=== PATIENT | male | born 1980 | race Caucasian/White ===

== ENCOUNTER → 2019-12-05 11:58 | Outpatient (BNVA) | payer MEDICARE, MEDICAID, SELFPAY | PROVIDERS: Family Provider Nurse Practitioner Family; PCP Nurse Practitioner Family; Visit Provider Nurse Practitioner Family | DX: L08.9 Local infection of the skin and subcutaneous tissue, unspecified (principal); S46.001A Unspecified injury of muscle(s) and tendon(s) of the rotator cuff of right shoulder, initial encounter | CPT/HCPCS: 73030 ==

== ENCOUNTER 2019-12-11 08:28 | Observation (INO) | payer MEDICARE, MEDICAID, SELFPAY ==
[2019-12-11] VITALS (13 sets, daily range): BP systolic 124–144; BP diastolic 81–116; PULSE 89–112; RESP 15–20; TEMP 36.4–37.1; O2SAT 92–97; BMI 27.4
--- NOTE | 2019-12-11 08:31 | ED_ITS ---
Entered by Soy Arias, acting as scribe for Bravo Grayson DO HPI - GI Bleed General: Chief complaint: Chest Pain Stated complaint: CHEST PAIN/ NAUSEA/ DARK TARRY STOOLS Time Seen by Provider: 12/11/19 08:32 History of Present Illness: HPI Narrative: 39 yo male presents with nausea, vomiting and dark tarry stools. Pt states that he has chest pain, tingling in his face and extremities. Pt states that he started vomiting dark brown bile. Pt states that this all started at 130 this morning. Pt states that his heart rate increased to 120s. Pt states that his heart rate hasn't gone down. MD complaint: other (dark tarry stools) Associated symptoms: Reports headache(s), nausea and vomiting; Denies abdominal pain, chills, easy bruising, fever(s), malaise, rash or syncope Review of Systems Const: Denies: fever, chills, body aches, fatigue, malaise or night sweats Eyes: Denies: change in vision or blurry vision ENMT: Denies: throat pain, oral sores/lesions, dental pain, nasal discharge or nasal congestion Card: Reports: chest pain; Denies: palpitations, irregular heart rhythm, edema, syncope, shortness of breath on exertion, shortness of breath when lying down or leg pain with exertion Resp: Denies: shortness of breath, productive cough, non-productive cough or wheezing GI: Reports: nausea, vomiting, coffee grounds in vomit, diarrhea, blood in stool and black tarry stool; Denies: abdominal pain, vomiting blood, difficulty swallowing, heartburn/indigestion, constipation or cramping : Denies: flank pain, difficulty urinating, painful urination, urinary frequency, urinary urgency, urinary incontinence or blood in urine Musc: Denies: neck pain, back pain, extremity pain, extremity swelling, joint pain or joint swelling Skin/Breast: Denies: rash, itching or redness Neuro: Reports: headache and numbness in extremities; Denies: weakness in extremities, changes in sensation, lack of coordination, difficulty walking, frequent falls, dizziness, vertigo or confusion Psych: Reports: anxiety; Denies: depression, loss of interest, visual hallucinations, auditory hallucinations, suicidal ideation or homicidal ideation Endo: Denies: excessive urination, excessive thirst, tired all the time or cold intolerance Marco/Lymph: Denies: easy bruising, easy bleeding, petechiae, enlarged lymph nodes or tender lymph nodes PFSH ED PFSH: Surgical History S/P right rotator cuff repair Family History (Updated 12/11/19 @ 12:56 by Kacie Eaton DO) Father CAD (coronary artery disease) Mother CAD (coronary artery disease) Diabetes Social History (Updated 12/11/19 @ 12:57 by Kacie Eaton DO) Smoking and tobacco status: current every day smoker cigarettes and cigars Quit status (tobacco): not considering quitting Second hand smoke exposure: Yes Smoking risk assessment/counseling performed?: Yes Alcohol intake: current Alcohol intake frequency: few times a week Desire information about alcohol rehabilitation?: No Counseling given: No Desire information about substance/drug rehabilitation?: No Counseling given: No Physical Exam Const: COMMON NORMALS: average body habitus, oriented x3 and alert GENERAL APPEARANCE: cooperative, comfortable, well kempt and well developed NUTRITIONAL APPEARANCE: obese ORIENTATION/CONSCIOUSNESS: Yes awake, Yes oriented to person and Yes oriented to place HENMT: COMMON NORMALS: normocephalic, head/scalp atraumatic, EAC's normal, TM's normal bilaterally, external nose normal, moist oral mucous membranes and oropharynx normal HEAD & SCALP: normocephalic and atraumatic NOSE: external nose normal EXTERNAL AUDITORY CANAL: EAC's normal TYMPANIC MEMBRANE: TM's normal bilaterally MOUTH: oral and palatal mucosa normal, lip normal and tongue normal THROAT: posterior oropharynx normal and tonsils normal Eye: COMMON NORMALS: PERRL, EOMs intact bilaterally, conjunctivae normal and no scleral icterus CONJUNCTIVA: Yes conjunctivae normal PUPIL: Yes PERRL Neck/C-Spine: COMMON NORMALS: full ROM, no lymphadenopathy, supple, no meningeal signs and thyroid normal THYROID: thyroid normal and asymmetrical Lymph: LYMPHATIC: no lymphadenopathy noted Resp: COMMON NORMALS: normal respiratory effort, no retractions, no use of accessory muscles and clear to auscultation bilaterally AUSCULTATION: clear to auscultation bilaterally Cardio: COMMON NORMALS: regular rhythm; negative for regular rate RATE: abnormal rate and tachycardic RHYTHM: regular rhythm HEART SOUNDS: no murmurs GI: COMMON NORMALS: normal to inspection, nondistended, normoactive bowel sounds, soft to palpation and no hepatosplenomegaly PALPATION: Yes soft and Yes no hepatosplenomegaly : COMMON NORMALS: Yes no CVA tenderness BLADDER/KIDNEY EXAM: Yes no CVA tenderness Back/Pelvis: COMMON NORMALS: no CVA tenderness LUMBAR SPINE/LOWER BACK: Yes normal to inspection Extremity: COMMON NORMALS: no clubbing, cyanosis or edema, no calf tenderness and no pedal edema Neuro: COMMON NORMALS: oriented x3 SENSORIUM/ORIENTATION: Yes alert, Yes oriented to person and Yes oriented to place MENINGEAL SIGNS: Yes no meningeal signs OTHER: No focal neurologic deficits noted on exam Psych: APPEARANCE: Yes well kempt Skin: COMMON NORMALS: no rashes or lesions noted and skin turgor normal GENERAL SKIN EXAM: no rashes or lesions noted and turgor normal Course ED course: Patient heart score greater than 3 given his reported chest pain will go ahead and place him on observation Hemoccult done in the ER was negative. Vital Signs: Vital signs: Vital Signs Temperature 97.9 F 12/12/19 12:36 Pulse Rate 99 12/12/19 12:36 Respiratory Rate 18 12/12/19 12:36 Blood Pressure 114/75 12/12/19 12:36 Pulse Oximetry 97 12/12/19 12:36 MDM - GI Bleed Lab Data: Labs: Lab Results 12/11/19 12/11/19 12/11/19 Range/Units 08:54 08:54 08:54 WBC 23.2 H (4.0-10.0) 10^3/ uL RBC 5.89 H (4.1-5.3) 10^6/u L Hgb 17.8 H (11.7-16.6) g/dL Hct 50.8 (42.0-52.0) % MCV 86.2 (80-94) fL MCH 30.2 (28.0-34.0) pg MCHC 35.0 (30.0-36.0) g/dL RDW 11.8 L (12.1-15.1) % Plt Count 312 (130-400) 10^3/c mm MPV 9.2 (7.4-10.4) fL Neut % (Auto) 74.6 % Lymph % (Auto) 16.8 % Bowman % (Auto) 7.0 % Eos % (Auto) 0.4 % Baso % (Auto) 0.5 % Neut # (Auto) 17.3 H (1.8-7.7) 10^3/u L Lymph # (Auto) 3.9 (0.8-4.8) 10^3/u L Bowman # (Auto) 1.6 H (0.2-0.9) 10^3/u L Eos # (Auto) 0.1 (0.0-0.8) 10^3/u L Baso # (Auto) 0.1 (0.0-0.1) 10^3/u L Nucleated RBC % (a uto) 0 % Nucleated RBCs # 0.0 /100WBC Sodium 128 L (136-145) mmol/L Potassium 4.6 (3.5-5.1) mmol/L Chloride 90 L (98-107) mmol/L Carbon Dioxide 19 L (22-29) mmol/L Anion Gap 23.6 H (5-19) BUN 16 (6-20) mg/dL Creatinine 0.7 (0.7-1.2) mg/dL GFR Calculation 124.3 (90-130) mL/min Glucose 373 H (65-115) mg/dL Estimat Average Gl ucose Hemoglobin A1c (4.0-6.0) % Calcium 10.6 H (8.5-10.5) mg/dL Total Bilirubin 1.8 H (0.15-1.2) mg/dL AST 17 (0-40) U/L ALT 27 (0-41) U/L Alkaline Phosphata se 92 (40-130) IU/L Troponin T Baselin e 36.46 Troponin T 120 Min ione (0-15) ng/mL Delta Troponin T (0-10) ABS# Total Protein 8.0 (6.6-8.7) g/dL Albumin 4.9 (3.5-5.2) g/dL Globulin 3.1 (1.3-4.6) g/dL Triglycerides (0-150) mg/dL Cholesterol (0-200) mg/dL LDL Cholesterol Di rect (0-100) mg/dL HDL Cholesterol (60-100) mg/dL Cholesterol/HDL Ra josselin (1.0-5.00) mg/dL Urine Color (Yellow) Urine Appearance (CLEAR) Urine pH (5-7) Ur Specific Gravit y (1.005-1.030) Urine Protein (Negative) Urine Glucose (UA) (Normal) Urine Ketones (Negative) Urine Occult Blood (Negative) Urine Nitrate (Negative) Urine Bilirubin (NEGATIVE) Urine Urobilinogen (Negative) mg/dL Ur Leukocyte Rhoda ase (Negative) Urine RBC (0-2) /hpf Urine WBC (0-5) /hpf Ur Squamous Epith Cells (0-5) Urine Bacteria (NONE) Urine Mucus 12/11/19 12/11/19 12/11/19 Range/Units 08:54 08:54 10:15 WBC (4.0-10.0) 10^3/ uL RBC (4.1-5.3) 10^6/u L Hgb (11.7-16.6) g/dL Hct (42.0-52.0) % MCV (80-94) fL MCH (28.0-34.0) pg MCHC (30.0-36.0) g/dL RDW (12.1-15.1) % Plt Count (130-400) 10^3/c mm MPV (7.4-10.4) fL Neut % (Auto) % Lymph % (Auto) % Bowman % (Auto) % Eos % (Auto) % Baso % (Auto) % Neut # (Auto) (1.8-7.7) 10^3/u L Lymph # (Auto) (0.8-4.8) 10^3/u L Bowman # (Auto) (0.2-0.9) 10^3/u L Eos # (Auto) (0.0-0.8) 10^3/u L Baso # (Auto) (0.0-0.1) 10^3/u L Nucleated RBC % (a uto) % Nucleated RBCs # /100WBC Sodium (136-145) mmol/L Potassium (3.5-5.1) mmol/L Chloride (98-107) mmol/L Carbon Dioxide (22-29) mmol/L Anion Gap (5-19) BUN (6-20) mg/dL Creatinine (0.7-1.2) mg/dL GFR Calculation (90-130) mL/min Glucose (65-115) mg/dL Estimat Average Gl ucose 272 Hemoglobin A1c 11.1 H (4.0-6.0) % Calcium (8.5-10.5) mg/dL Total Bilirubin (0.15-1.2) mg/dL AST (0-40) U/L ALT (0-41) U/L Alkaline Phosphata se (40-130) IU/L Troponin T Baselin e Troponin T 120 Min ione (0-15) ng/mL Delta Troponin T (0-10) ABS# Total Protein (6.6-8.7) g/dL Albumin (3.5-5.2) g/dL Globulin (1.3-4.6) g/dL Triglycerides 651 H (0-150) mg/dL Cholesterol 289 H (0-200) mg/dL LDL Cholesterol Di rect 176 H (0-100) mg/dL HDL Cholesterol 40 L (60-100) mg/dL Cholesterol/HDL Ra josselin 7.23 H (1.0-5.00) mg/dL Urine Color Yellow (Yellow) Urine Appearance Clear (CLEAR) Urine pH 5.0 (5-7) Ur Specific Gravit y 1.020 (1.005-1.030) Urine Protein 1+ H (Negative) Urine Glucose (UA) 4+ H (Normal) Urine Ketones 2+ H (Negative) Urine Occult Blood 3+ H (Negative) Urine Nitrate Negative (Negative) Urine Bilirubin Neg (NEGATIVE) Urine Urobilinogen Norm (Negative) mg/dL Ur Leukocyte Rhoda ase Negative (Negative) Urine RBC 10-15 H (0-2) /hpf Urine WBC None (0-5) /hpf Ur Squamous Epith Cells 0-4 H (0-5) Urine Bacteria Trace (NONE) Urine Mucus Trace 12/11/19 Range/Units 10:51 WBC (4.0-10.0) 10^3/ uL RBC (4.1-5.3) 10^6/u L Hgb (11.7-16.6) g/dL Hct (42.0-52.0) % MCV (80-94) fL MCH (28.0-34.0) pg MCHC (30.0-36.0) g/dL RDW (12.1-15.1) % Plt Count (130-400) 10^3/c mm MPV (7.4-10.4) fL Neut % (Auto) % Lymph % (Auto) % Bowman % (Auto) % Eos % (Auto) % Baso % (Auto) % Neut # (Auto) (1.8-7.7) 10^3/u L Lymph # (Auto) (0.8-4.8) 10^3/u L Bowman # (Auto) (0.2-0.9) 10^3/u L Eos # (Auto) (0.0-0.8) 10^3/u L Baso # (Auto) (0.0-0.1) 10^3/u L Nucleated RBC % (a uto) % Nucleated RBCs # /100WBC Sodium (136-145) mmol/L Potassium (3.5-5.1) mmol/L Chloride (98-107) mmol/L Carbon Dioxide (22-29) mmol/L Anion Gap (5-19) BUN (6-20) mg/dL Creatinine (0.7-1.2) mg/dL GFR Calculation (90-130) mL/min Glucose (65-115) mg/dL Estimat Average Gl ucose Hemoglobin A1c (4.0-6.0) % Calcium (8.5-10.5) mg/dL Total Bilirubin (0.15-1.2) mg/dL AST (0-40) U/L ALT (0-41) U/L Alkaline Phosphata se (40-130) IU/L Troponin T Baselin e Troponin T 120 Min ione 33.29 H (0-15) ng/mL Delta Troponin T -3.17 L (0-10) ABS# Total Protein (6.6-8.7) g/dL Albumin (3.5-5.2) g/dL Globulin (1.3-4.6) g/dL Triglycerides (0-150) mg/dL Cholesterol (0-200) mg/dL LDL Cholesterol Di rect (0-100) mg/dL HDL Cholesterol (60-100) mg/dL Cholesterol/HDL Ra josselin (1.0-5.00) mg/dL Urine Color (Yellow) Urine Appearance (CLEAR) Urine pH (5-7) Ur Specific Gravit y (1.005-1.030) Urine Protein (Negative) Urine Glucose (UA) (Normal) Urine Ketones (Negative) Urine Occult Blood (Negative) Urine Nitrate (Negative) Urine Bilirubin (NEGATIVE) Urine Urobilinogen (Negative) mg/dL Ur Leukocyte Rhoda ase (Negative) Urine RBC (0-2) /hpf Urine WBC (0-5) /hpf Ur Squamous Epith Cells (0-5) Urine Bacteria (NONE) Urine Mucus Discharge Plan Discharge Patient Disposition: Placed in Observation Admit Provider: Kacie Eaton Clinical Impression: Chest pain, Essential hypertension, COPD (chronic obstructive pulmonary disease), Diabetes Condition: Stable Referrals: Kelly Montalvo, CHILD AND FAMILY THERAPIST [Primary Care Provider] - 1-3 days (You have an appointment on at 1pm.) Discharge Diet: Advance as tolerated and Diabetic Discharge Activity: Increase activity as tolerated Patient Instructions: Chest Pain - Noncardiac, Atorvastatin (By mouth) Additional Instructions: Continue to monitor your blood sugars daily and present a blood sugar log to your primary care provider for further insulin adjustment as indicated Return to the ER for any acute illness or concern Continue to encourage hydration with water Started on atorvastatin, cholesterol medication due to elevated cholesterol levels Interventions: ED Discharge Assessment Last Done: 12/11/19 13:20 Discharge Date/Time: 12/11/19 13:23 Coding Level of Care Code ED Fermentation Manager for Chg Fwd Exam Problem Focused The documentation recorded by the Hugo willett Kialy, accurately reflects the service I personally performed and the decisions made by Renuka mao Curtis L, DO Dec 11, 2019 08:28
--- NOTE | 2019-12-11 08:39 | XRR_ITS ---
PROCEDURE INFORMATION: Exam: XR Chest, 1 View Exam date and time: 12/11/2019 9:01 AM Age: 39 years old Clinical indication: Dyspnea/cough/chest pain TECHNIQUE: Imaging protocol: XR of the chest Views: 1 view. COMPARISON: CR Chest 1 [place] [id number] 12/18/2018 2:35 PM FINDINGS: Lungs: No lung consolidation or pulmonary edema. Pleural space: No pleural effusion or pneumothorax. Heart/Mediastinum: The cardiac silhouette is not enlarged. The mediastinal contours are normal. Bones/joints: Mild curvature of the thoracic spine convex to the right. Prior right rotator cuff surgery with humeral anchors present. XR/XR chest 1V portable [id number] IMPRESSION: No acute abnormality.
--- NOTE | 2019-12-11 08:40 | ECG_ITS ---
Measurements Intervals [place] Rate: 107 P: 31 VA: 145 QRS: 21 QRSD: 84 T: 32 QT: 309 QTc: 414 SINUS TACHYCARDIA POSSIBLE LEFT ATRIAL ENLARGEMENT [-0.1mV P WAVE IN V1/V2] POSSIBLE ANTERIOR MYOCARDIAL INFARCTION , OF INDETERMINATE AGE [30 ms Q WAVE IN V3 V3/V4, OR R < 0.2 mV IN V4] Compared to ECG 12/18/2018 14:32:07 Myocardial infarct finding now present Sinus rhythm no longer present Electronically Signed On 12-11-2019 20:41:19 STOCK CONTROL CLERK by Funmilayo Degroot M.D. [email or web address]
[2019-12-11] MEDS: ondansetron 2 mg/ML SDV 2 mL 4 MG IVP (08:51)
[2019-12-11] MEDS: sodium chloride 0.9% 1,000 ML 999 ML IV (08:51)
[2019-12-11 09:01] LABS: Basophils # 0.1 10^3/uL (0.0-0.1); Basophils % 0.5 %; Eosinophils # 0.1 10^3/uL (0.0-0.8); Eosinophils % 0.4 %; Hematocrit 50.8 % (42.0-52.0); Hemoglobin 17.8 g/dL (11.7-16.6); Lymphocytes # 3.9 10^3/uL (0.8-4.8); Lymphocytes % 16.8 %; Mean Corpuscular Hemoglobin 30.2 pg (28.0-34.0); Mean Corpuscular Volume 86.2 fL (80-94); Mean Platelet Volume 9.2 fL (7.4-10.4); Monocytes # 1.6 10^3/uL (0.2-0.9); Neutrophils # 17.3 10^3/uL (1.8-7.7); Neutrophils % 74.6 %; Nucleated Red Blood Cells % 0 %; Platelet Count 312 10^3/cmm (130-400); Red Blood Count 5.89 10^6/uL (4.1-5.3); Red Cell Distribution Width 11.8 % (12.1-15.1); White Blood Count 23.2 10^3/uL (4.0-10.0)
[2019-12-11 09:17] LABS: Alanine Aminotransferase 27 U/L (0-41); Albumin Level 4.9 g/dL (3.5-5.2); Alkaline Phosphatase 92 IU/L (40-130); Anion Gap 23.6 (5-19); Aspartate Amino Transferase 17 U/L (0-40); Blood Urea Nitrogen 16 mg/dL (6-20); Calcium 10.6 mg/dL (8.5-10.5); Carbon Dioxide 19 mmol/L (22-29); Chloride 90 mmol/L (98-107); Globulin 3.1 g/dL (1.3-4.6); Glomerular Filtration Rate 124.3 mL/min (90-130); Glucose 373 mg/dL (65-115); Potassium 4.6 mmol/L (3.5-5.1); Sodium 128 mmol/L (136-145); Total Bilirubin 1.8 mg/dL (0.15-1.2)
[2019-12-11 09:21] LABS: Troponin(5th) Baseline 36.46
--- NOTE | 2019-12-11 09:25 | CT_ITS ---
WS: [id number] CT ABDOMEN AND PELVIS WITH CONTRAST HISTORY: Abdominal and epigastric pain, acute onset. TECHNIQUE: Imaging performed of the abdomen and pelvis with IV contrast. Single phase imaging of the abdomen. Coronal and sagittal reformats are submitted. All CT scans at [facility] use at least one of these dose optimization techniques: automated exposure control; mA and/or kV adjustment per patient size (includes targeted exams where dose is matched to clinical indication); or iterativ e reconstruction. IV CONTRAST: Omnipaque 300; 95 mL IV. Oral contrast: No DLP: 1067.97 mGy.cm COMPARISON: 05/30/2016 Lower thorax: Lung bases are clear. Heart is normal size. Small hiatal hernia. Liver/biliary system: Mild hepatic steatosis. Liver is very slightly enlarged with no bile duct dilat ation. Gallbladder: Normal. No gallstones or wall thickening. No pericholecystic fluid. Pancreas: Normal. Spleen: Normal. Adrenal glands: Normal. Right kidney: Normal. Left kidney: Normal. Aorta: Mild atherosclerosis of aorta. No aneurysm. Lymphadenopathy: None. Free fluid: None. GI tract: Normal appendix. Mild thickening of the descending colon. No definite inflammation. Thicken ing may be due to nondistention and peristalsis. Mild colitis should be considered clinically if this is the area of pain. Abdominal wall: Unremarkable abdominal wall. No hernia. Pelvis: Moderately well distended urinary bladder. Prostate gland is not significantly enlarged. No f ree fluid in the pelvis or adenopathy. Bones: Mild LEFT convex curvature lumbar spine. CT/CT abdomen pelvis w con* [id number] IMPRESSION: 1. No appendicitis or renal stone or obstruction. 2. Mild atherosclerosis within the abdominal aorta. 3. Mild wall thickening of the descending colon. May be due to underdistention . Correlate for possible early colitis if this is the area of pain. 4. Urinary bladder is moderately well distended. If patient cannot void volunt arily there may be an obstruction. 5. Hepatic steatosis.
[2019-12-11] MEDS: iohexol 300 mg/mL 100 mL Btl IV (09:50)
[2019-12-11 10:36] LABS: Urine Appearance Clear (CLEAR); Urine Color Yellow (Yellow)
[2019-12-11 10:37] LABS: Add Urine Microscopic? YES; Bilirubin Urine Neg (NEGATIVE); Blood Urine 3+ (Negative); Glucose Urine UA 4+ (Normal); Ketones Urine 2+ (Negative); Leukocyte Esterase Urine Negative (Negative); Nitrate Urine Negative (Negative); Protein Urine 1+ (Negative); Urobilinogen Urine Norm (Negative)
--- NOTE | 2019-12-11 10:40 | ECG_ITS ---
Measurements Intervals [place] Rate: 102 P: 26 SC: 144 QRS: 20 QRSD: 84 T: 38 QT: 322 QTc: 420 SINUS TACHYCARDIA POSSIBLE LEFT ATRIAL ENLARGEMENT [-0.1mV P WAVE IN V1/V2] POSSIBLE ANTERIOR MYOCARDIAL INFARCTION , OF INDETERMINATE AGE [30 ms Q WAVE IN V3 V3/V4, OR R < 0.2 mV IN V4] Compared to ECG 12/18/2018 14:32:07 Myocardial infarct finding now present Sinus rhythm no longer present Electronically Signed On 12-11-2019 20:42:21 BRANCH EXAMINER by Funmilayo Degroot M.D. [email or web address]
[2019-12-11 10:45] LABS: Add Urine Culture? Yes; Bacteria Urine TRACE; Mucus Urine TRACE; Squamous Epithelial Cell Urine 0-4 (0-5)
[2019-12-11 11:13] LABS: Troponin 5 2HR 33.29 ng/mL (0-15); Troponin 5 2HR Delta -3.17 ABS# (0-10)
[2019-12-11 12:44] LABS: Estmated Average Glucose 272; Hemoglobin A1C 11.1 % (4.0-6.0)
--- NOTE | 2019-12-11 12:46 | ECG_ITS ---
NAME OF STUDY: TREADMILL STRESS TEST INDICATION: Chest Pain, EXERCISE DATA: The patient was exercised by Abhijit protocol. Baseline heart rate was 153 beats per minute. Baseline blood pressure was 190/94 millimeters of mercury. Target heart rate was 179 beats per minute. Maximum heart rate achieved was 154, which was 86 % of the target heart rate. Maximum blood pressure was 198/110 millimeters of mercury. Total exercise time was 6 minutes 19 seconds. Maximum METs achieved was 8.5, maximum VO2 was 29.8. The reason for ending the test was [maximum effort achieved. The patient complained of shortness of breath during the stress test, which then resolved at the end of the test. ELECTROCARDIOGRAM: BASELINE: Sinus rhythm, normal axis, no significant ST-T changes at the baseline noted. EXERCISE: At the peak exercise level, No significant ST-T changes suggestive of ischemia noted. RECOVERY: During the recovery period, heart rate dropped appropriately. No significant ST-T changes in the recovery suggestive of ischemia noted. CONCLUSION: 1. Exercise capacity fair. 2. Heart rate response was appropriate. 3. Blood pressure response was hypertensive. 4. Symptoms not suggestive of ischemia. 5. Electrocardiogram portion of the stress test was not suggestive of ischemia. 6. Nuclear scan will be documented separately. Electronically Signed On 12-11-2019 20:48:01 PROTECTIVE SIGNAL INSTALLER by Funmilayo Degroot M.D. [email or web address]
--- NOTE | 2019-12-11 12:50 | P.HP_ITS ---
Providers/Chief Complaint Admitting Physician: Kacie Eaton DO Primary Care Provider: BABITA Hdz Chief Complaint: CHEST PAIN/ NAUSEA/ DARK TARRY STOOLS History of Present Illness Miguel Lomas is a 39 year old male that presented to the emergency department for chest pain. Patient stated that he began having chest pain yesterday. He stated that it began to get worse with activity therefore he came into the ER for further evaluation. He stated that he had some associated nausea vomiting as well as hot flashes and sweating. He stated that the pain is located in center of his chest and feels like a squeezing in the center of his chest. He stated that it seems to be worse with exertion, any walking around seems to exaggerate his symptoms. He stated that he took aspirin and nitroglycerin at home with no relief but came into the ER for further evaluation and treatment. He stated that now the pain is somewhat improved. He was seen and evaluated in the ED and placed on observation due to chest pain. Review of Systems Const: Denies: fever or chills Eyes: Denies: change in vision ENMT: Denies: nasal congestion Card: Reports: chest pain; Denies: palpitations or edema Resp: Denies: shortness of breath, productive cough or coughing up blood GI: Reports: nausea and vomiting; Denies: abdominal pain, diarrhea, constipation, blood in stool or black tarry stool : Denies: painful urination or blood in urine Musc: Denies: extremity pain or muscle cramps Skin/Breast: Denies: rash or new lesion Neuro: Reports: headache and other (Chronic paresthesia in the lower extremities); Denies: dizziness Psych: Denies: anxiety or depression Endo: Denies: excessive urination or hot flashes Marco/Lymph: Denies: easy bruising or easy bleeding Medications/Allergies Home Medications Medication Instructions Recorded Confirmed Last Taken Type aspirin 81 mg PO DAILY 12/11/19 12/11/19 Unknown History hydroxyzine HCl 25 mg PO TID PRN 12/11/19 12/11/19 Unknown History insulin degludec [Tresiba 55 unit SUBCUT DAILY 12/11/19 12/11/19 Unknown History FlexTouch U-200] Allergies Allergy/AdvReac Type Severity Reaction Status Date / Time capsaicin Allergy itching Verified 12/05/19 11:03 and rash codeine Allergy unknown Verified 12/05/19 11:03 gabapentin Allergy seizures Verified 12/05/19 11:03 menthol Allergy unknown Verified 12/05/19 11:03 PFSH Acute PFSH: Surgical History S/P right rotator cuff repair Family History (Updated 12/11/19 @ 12:56 by Kacie Eaton DO) Father CAD (coronary artery disease) Mother CAD (coronary artery disease) Diabetes Social History (Updated 12/11/19 @ 12:57 by Kacie Eaton DO) Smoking and tobacco status: current every day smoker cigarettes and cigars Quit status (tobacco): not considering quitting Second hand smoke exposure: Yes Smoking risk assessment/counseling performed?: Yes Alcohol intake: current Alcohol intake frequency: few times a week Desire information about alcohol rehabilitation?: No Counseling given: No Substance/Drug Use: current Substance/Drug use frequency: few times a month Substance/Drug use type: Marijuana Desire information about substance/drug rehabilitation?: No Counseling given: No Vitals/I&O/Wt Last Vital Signs Temp 97.7 F 12/11/19 08:29 Pulse 105 H 12/11/19 11:08 Resp 15 12/11/19 11:08 BP 139/97 12/11/19 11:08 Pulse Ox 96 12/11/19 11:08 Weight last 48 hrs Weight 89.358 kg Physical Exam Const: COMMON NORMALS: oriented x3 and alert GENERAL APPEARANCE: cooperative ORIENTATION/CONSCIOUSNESS: Yes awake, Yes oriented to person, Yes oriented to place and Yes oriented to time HENMT: COMMON NORMALS: normocephalic and head/scalp atraumatic HEAD & SCALP: normocephalic and atraumatic Eye: COMMON NORMALS: PERRL PUPIL: Yes PERRL Neck/C-Spine: COMMON NORMALS: supple GENERAL: Yes normal visual inspection Resp: COMMON NORMALS: normal respiratory effort and clear to auscultation bilaterally EFFORT & INSPECTION: Yes able to speak in complete sentences AUSCULTATION: clear to auscultation bilaterally, no rhonchi and no wheezes Cardio: COMMON NORMALS: regular rate, regular rhythm and no murmurs RATE: regular rate RHYTHM: regular rhythm GI: COMMON NORMALS: soft to palpation and non-tender INSPECTION: No abdominal distension AUSCULTATION: Yes normoactive bowel sounds PALPATION: Yes soft Extremity: COMMON NORMALS: no clubbing, cyanosis or edema and no calf tenderness Neuro: COMMON NORMALS: oriented x3, CN's II-XII intact bilaterally, moves all extremities and no focal motor deficits SENSORIUM/ORIENTATION: Yes alert, Yes oriented to person, Yes oriented to place and Yes oriented to time SPEECH: speech normal Psych: COMMON NORMALS: cooperative Skin: OTHER: Several scattered excoriated lesions diffusely over the arms and face, no surrounding erythema or drainage Data : 12/11/19 08:54 12/11/19 08:54 CT Abd/Pel: Radiologist's impression: IMPRESSION: 1. No appendicitis or renal stone or obstruction. 2. Mild atherosclerosis within the abdominal aorta. 3. Mild wall thickening of the descending colon. May be due to underdistention. Correlate for possible early colitis if this is the area of pain. 4. Urinary bladder is moderately well distended. If patient cannot void voluntarily there may be an obstruction. 5. Hepatic steatosis. CXR: Radiologist's impression: IMPRESSION: No acute abnormality. A&P Assessment and plan (1) Chest pain: Patient reports chest pain on exertion Telemetry Serial EKG and troponin Plan for treadmill stress test, however if unable to perform will schedule for chemical stress test MICHOACANO as needed for pain Risk factors for coronary artery disease including hypertension, diabetes, tobacco abuse and family history of heart disease Status: Acute Code(s): R07.9 - Chest pain, unspecified (2) Diabetes: Placed on sliding scale insulin On home Tresiba 55U daily, will decrease dose while inpatient due to NPO status for stress test Hold home metformin Status: Acute Code(s): E11.9 - Type 2 diabetes mellitus without complications (3) COPD (chronic obstructive pulmonary disease): without acute exacerbation Status: Acute Code(s): J44.9 - Chronic obstructive pulmonary disease, unspecified (4) Essential hypertension: Continue home lisinopril 10mg daily Status: Acute Code(s): I10 - Essential (primary) hypertension Additional A&P Information Dehydration: Continue with IVF, NS Elevated AG: likely secondary to dehydration and alcohol use yesterday Chronic migraine headaches: on propranolol, holding for stress test Chronic parasthesias in the LE Chronic excoriations: without acute infection, previously on antibiotics Tobacco abuse: encourage cessation Leukocytosis: likely hemoconcentration, no infectious etiology at this time Hepatic steatosis on imaging DVT pppx: SCDs Diet: NPO Attestations Medical Necessity Statement*: Placed patient on observation due to chest pain, expected stay less than 2 midnights Coding Level of Care Code Acute Watch Crystal Grinder for Eugenieg Fwd Diagnoses Chest pain R07.9 Diabetes E11.9 COPD (chronic obstructive pulmonary disease) J44.9 Essential hypertension I10
[2019-12-11] MEDS: metoprolol tartrate 1 mg/1 mL SDV 5 mL 5 MG IVP (13:43)
[2019-12-11 14:05] LABS: Chol HDL Ratio 7.23 mg/dL (1.0-5.00); Cholesterol 289 mg/dL (0-200); HDL Cholesterol 40 mg/dL (60-100); Triglycerides 651 mg/dL (0-150)
[2019-12-11 14:40] LABS: LDL Cholesterol Direct 176 mg/dL (0-100)
--- NOTE | 2019-12-11 14:40 | ECG_ITS ---
Measurements Intervals Herod Rate: 98 P: 45 UT: 149 QRS: 32 QRSD: 104 T: 25 QT: 332 QTc: 424 SINUS RHYTHM Compared to ECG 12/18/2018 14:32:07 No significant changes Electronically Signed On 12-11-2019 20:43:22 CONTRACTING ANALYST by Funmilayo Degroot M.D. [email or web address]
[2019-12-11] MEDS: acetaminophen 325 mg Tablet 650 MG PO ×2 (15:00→23:08)
[2019-12-11] MEDS: sodium chloride 0.9% 1,000 ML 100 ML IV (15:01)
[2019-12-11 15:23] LABS: Troponin 5 6HR 29.53 ng/mL (0-15)
[2019-12-11 15:25] LABS: Troponin 5 6HR Delta -6.93 ng/L (0-12)
[2019-12-11] MEDS: albuterol 8 gm MDI 2 PUFF INHALATION ×2 (15:35→21:22)
[2019-12-11 16:07] LABS: Glucose Point of Care 449 mg/dL (70-110)
[2019-12-11] MEDS: trazodone 100 mg Tablet PO (20:16)
[2019-12-11] MEDS: ondansetron 4 MG Tablet PO (20:17)
[2019-12-11 20:54] LABS: Glucose Point of Care 301 mg/dL (70-110)
[2019-12-12] MEDS: sodium chloride 0.9% 1,000 ML 100 ML IV (01:57)
[2019-12-12 04:00] VITALS: BP 123/64; PULSE 101; RESP 20; TEMP 36.5; O2SAT 95
[2019-12-12 06:35] LABS: Glucose Point of Care 262 mg/dL (70-110)
[2019-12-12 08:00] VITALS: BP 125/86; PULSE 88; RESP 18; TEMP 36.9; O2SAT 97
[2019-12-12] MEDS: albuterol 8 gm MDI 2 PUFF INHALATION (08:16)
[2019-12-12 08:17] VITALS: PULSE 100; RESP 18; O2SAT 95
[2019-12-12 08:19] VITALS: PULSE 98; RESP 18; O2SAT 95
[2019-12-12] MEDS: lisinopril 10 mg Tablet PO (08:32)
[2019-12-12] MEDS: pantoprazole DR 40 mg Tablet PO (08:32)
[2019-12-12] MEDS: aspirin 81 mg EC Tablet PO (08:32)
--- NOTE | 2019-12-12 08:56 | P.DS_ITS ---
Discharge Providers Date of Admission: 12/11/19 12:41 Date of Discharge: December 12, 2019 Attending Provider at Admission: Kacie Eaton DO Attending Provider at Discharge: Kacie Eaton DO Primary Care Provider: BABITA Hdz Diagnoses at Discharge Discharge Diagnosis (1) Chest pain: Status: Acute Problem details: Due to patient having chest pain on exertion stress test was performed, treadmill stress test did not show any evidence of ischemic changes Patient remained chest pain-free following this procedure with no further conc erns (2) Diabetes: Status: Acute Problem details: Poorly controlled, insulin-dependent Follow-up closely with your primary care provider and present blood sugar log at that time (3) COPD (chronic obstructive pulmonary disease): Status: Acute Problem details: Without acute exacerbation (4) Essential hypertension: Status: Acute Problem details: Continue on lisinopril 10 mg daily Reason for Visit Reason for Visit: Reason For Visit: CHEST PAINS Hospital Course Hospital Course: Patient was seen and evaluated in the emergency department due to his risk factors for coronary artery disease and reports of chest pain on exertion he was placed on observation. Patient had serial EKG and troponin and was taken for treadmill stress test which showed no evidence of any ischemic changes on EKG based on cardiology read. Patient remained chest pain-free he was given IV fluids due to concern for dehydration. He was started on a statin medication, atorvastatin due to hypercholesterolemia. On date of discharge patient was sleeping in bed he denied any concerns or questions, reported that he was feeling better today. Patient denied any chest pain, no shortness of breath, no abdominal pain or nausea. Physical Exam Const: COMMON NORMALS: oriented x3 and alert GENERAL APPEARANCE: cooperative ORIENTATION/CONSCIOUSNESS: Yes awake, Yes oriented to person, Yes oriented to place and Yes oriented to time HENMT: COMMON NORMALS: normocephalic and head/scalp atraumatic HEAD & SCALP: normocephalic and atraumatic Eye: COMMON NORMALS: PERRL PUPIL: Yes PERRL Neck/C-Spine: COMMON NORMALS: supple GENERAL: Yes normal visual inspection Resp: COMMON NORMALS: normal respiratory effort and clear to auscultation bilaterally EFFORT & INSPECTION: Yes able to speak in complete sentences AUSCULTATION: clear to auscultation bilaterally, no rhonchi and no wheezes Cardio: COMMON NORMALS: regular rate, regular rhythm and no murmurs RATE: regular rate RHYTHM: regular rhythm GI: COMMON NORMALS: soft to palpation and non-tender INSPECTION: No abdominal distension AUSCULTATION: Yes normoactive bowel sounds PALPATION: Yes soft Extremity: COMMON NORMALS: no clubbing, cyanosis or edema and no calf tenderness Neuro: COMMON NORMALS: oriented x3, CN's II-XII intact bilaterally, moves all extremities and no focal motor deficits SENSORIUM/ORIENTATION: Yes alert, Yes oriented to person, Yes oriented to place and Yes oriented to time SPEECH: speech normal Psych: COMMON NORMALS: cooperative Skin: OTHER: Several scattered excoriated lesions diffusely over the arms and face, no surrounding erythema or drainage Discharge Data Data Completed and Pending: Completed Studies During Hospitalization Category Date Time Status CT abdomen pelvis w con* [id number] Stat Cat Scan 12/11/19 09:25 [address] Request Stat Exams 12/11/19 12:46 Ordered XR chest 1V reinaldo ble [id number] Stat Exams 12/11/19 08:39 Completed Pending at discharge Category Date Time Status Cardiac Stress Te st Request Routine Exams 12/11/19 14:28 Ordered Basic Metabolic P dieudonne Routine Lab 12/12/19 08:33 Received Immunochemical Fe ashia OCB Stat Lab 12/11/19 09:31 Ordered Influenza A&B by IFA Stat Lab 12/11/19 09:35 Ordered Urine Culture Sta t Lab 12/11/19 10:15 Received Labs from last 24 hours 12/12/19 12/11/19 12/11/19 06:29 20:51 15:56 WBC RBC Hgb Hct MCV MCH MCHC RDW Plt Count MPV Neut % (Auto) Lymph % (Auto) [place] % (Auto) Eos % (Auto) Baso % (Auto) Neut # (Auto) Lymph # (Auto) [place] # (Auto) Eos # (Auto) Baso # (Auto) Nucleated RBC % (a uto) Nucleated RBCs # Sodium Potassium Chloride Carbon Dioxide Anion Gap BUN Creatinine GFR Calculation Glucose POC Glucose 262 301 449 Estimat Average Gl ucose Hemoglobin A1c Calcium Total Bilirubin AST ALT Alkaline Phosphata se Troponin I 6 Hour Troponin I Hi Sens Del Troponin T Baselin e Troponin T 120 Min [place] Delta Troponin T Total Protein Albumin Globulin Triglycerides Cholesterol LDL Cholesterol Di rect HDL Cholesterol Cholesterol/HDL Ra josselin Urine Color Urine Appearance Urine pH Ur Specific Gravit y Urine Protein Urine Glucose (UA) Urine Ketones Urine Occult Blood Urine Nitrate Urine Bilirubin Urine Urobilinogen Ur Leukocyte Rhoda ase Urine RBC Urine WBC Ur Squamous Epith Cells Urine Bacteria Urine Mucus 12/11/19 12/11/19 12/11/19 15:00 10:51 10:15 WBC RBC Hgb Hct MCV MCH MCHC RDW Plt Count MPV Neut % (Auto) Lymph % (Auto) [place] % (Auto) Eos % (Auto) Baso % (Auto) Neut # (Auto) Lymph # (Auto) [place] # (Auto) Eos # (Auto) Baso # (Auto) Nucleated RBC % (a uto) Nucleated RBCs # Sodium Potassium Chloride Carbon Dioxide Anion Gap BUN Creatinine GFR Calculation Glucose POC Glucose Estimat Average Gl ucose Hemoglobin A1c Calcium Total Bilirubin AST ALT Alkaline Phosphata se Troponin I 6 Hour 29.53 H Troponin I Hi Sens Del -6.93 L Troponin T Baselin e Troponin T 120 Min [place] 33.29 H Delta Troponin T -3.17 L Total Protein Albumin Globulin Triglycerides Cholesterol LDL Cholesterol Di rect HDL Cholesterol Cholesterol/HDL Ra josselin Urine Color Yellow Urine Appearance Clear Urine pH 5.0 Ur Specific Gravit y 1.020 Urine Protein 1+ H Urine Glucose (UA) 4+ H Urine Ketones 2+ H Urine Occult Blood 3+ H Urine Nitrate Negative Urine Bilirubin Neg Urine Urobilinogen Norm Ur Leukocyte Rhoda ase Negative Urine RBC 10-15 H Urine WBC None Ur Squamous Epith Cells 0-4 H Urine Bacteria Trace Urine Mucus Trace 12/11/19 12/11/19 12/11/19 08:54 08:54 08:54 WBC RBC Hgb Hct MCV MCH MCHC RDW Plt Count MPV Neut % (Auto) Lymph % (Auto) [place] % (Auto) Eos % (Auto) Baso % (Auto) Neut # (Auto) Lymph # (Auto) [place] # (Auto) Eos # (Auto) Baso # (Auto) Nucleated RBC % (a uto) Nucleated RBCs # Sodium Potassium Chloride Carbon Dioxide Anion Gap BUN Creatinine GFR Calculation Glucose POC Glucose Estimat Average Gl ucose 272 Hemoglobin A1c 11.1 H Calcium Total Bilirubin AST ALT Alkaline Phosphata se Troponin I 6 Hour Troponin I Hi Sens Del Troponin T Baselin e 36.46 Troponin T 120 Min [place] Delta Troponin T Total Protein Albumin Globulin Triglycerides 651 H Cholesterol 289 H LDL Cholesterol Di rect 176 H HDL Cholesterol 40 L Cholesterol/HDL Ra josselin 7.23 H Urine Color Urine Appearance Urine pH Ur Specific Gravit y Urine Protein Urine Glucose (UA) Urine Ketones Urine Occult Blood Urine Nitrate Urine Bilirubin Urine Urobilinogen Ur Leukocyte Rhoda ase Urine RBC Urine WBC Ur Squamous Epith Cells Urine Bacteria Urine Mucus 12/11/19 12/11/19 08:54 08:54 WBC 23.2 H RBC 5.89 H Hgb 17.8 H Hct 50.8 MCV 86.2 MCH 30.2 MCHC 35.0 RDW 11.8 L Plt Count 312 MPV 9.2 Neut % (Auto) 74.6 Lymph % (Auto) 16.8 [place] % (Auto) 7.0 Eos % (Auto) 0.4 Baso % (Auto) 0.5 Neut # (Auto) 17.3 H Lymph # (Auto) 3.9 [place] # (Auto) 1.6 H Eos # (Auto) 0.1 Baso # (Auto) 0.1 Nucleated RBC % (a uto) 0 Nucleated RBCs # 0.0 Sodium 128 L Potassium 4.6 Chloride 90 L Carbon Dioxide 19 L Anion Gap 23.6 H BUN 16 Creatinine 0.7 GFR Calculation 124.3 Glucose 373 H POC Glucose Estimat Average Gl ucose Hemoglobin A1c Calcium 10.6 H Total Bilirubin 1.8 H AST 17 ALT 27 Alkaline Phosphata se 92 Troponin I 6 Hour Troponin I Hi Sens Del Troponin T Baselin e Troponin T 120 Min [place] Delta Troponin T Total Protein 8.0 Albumin 4.9 Globulin 3.1 Triglycerides Cholesterol LDL Cholesterol Di rect HDL Cholesterol Cholesterol/HDL Ra josselin Urine Color Urine Appearance Urine pH Ur Specific Gravit y Urine Protein Urine Glucose (UA) Urine Ketones Urine Occult Blood Urine Nitrate Urine Bilirubin Urine Urobilinogen Ur Leukocyte Rhoda ase Urine RBC Urine WBC Ur Squamous Epith Cells Urine Bacteria Urine Mucus Vitals: Last Vital Signs Temp 97.7 F 12/12/19 04:00 Pulse 98 12/12/19 08:19 Resp 18 12/12/19 08:19 BP 123/64 12/12/19 04:00 Pulse Ox 95 12/12/19 08:19 Discharge Plan Discharge Patient Disposition: Home, Self-Care Condition: Stable Prescriptions: New atorvastatin 40 mg Tablet 40 mg PO DAILY 30 Days Qty: 30 RF: 0 Continued cyclobenzaprine 10 mg tablet 10 mg PO BEDTIME RF: 0 Atrovent HFA 17 mcg/actuation HFA aerosol inhaler 2 puff INHALATION Q4D RF: 0 albuterol sulfate 90 mcg/actuation HFA aerosol inhaler 2 puff INHALATION Q4H PRN (Reason: Shortness Of Breath) RF: 0 cholecalciferol (vitamin D3) 50,000 unit capsule 50,000 unit PO Q7D RF: 0 nitroglycerin 0.4 mg tablet, sublingual 0.4 mg sublingual Q5M PRN (Reason: chest pain) RF: 0 lisinopril 10 mg tablet 10 mg PO DAILY RF: 0 trazodone 100 mg tablet 100 mg PO BEDTIME RF: 0 propranolol 10 mg tablet 10 mg PO BID RF: 0 omeprazole 40 mg capsule,delayed release(DR/EC) 40 mg PO DAILY RF: 0 fenofibrate 54 mg tablet 54 mg PO DAILY RF: 0 fluticasone propionate 50 mcg/actuation spray,suspension 1 - 2 spray INTRANASAL DAILY PRN (Reason: ALLERGIES) RF: 0 cephalexin 250 mg capsule 250 mg PO Q6H 7 Days Qty: 28 RF: 0 aspirin 81 mg Tablet,Delayed Release (Dr/Ec) 81 mg PO DAILY RF: 0 hydroxyzine HCl 25 mg Tablet 25 mg PO TID PRN (Reason: UNKNOWN) RF: 0 Tresiba FlexTouch U-200 200 unit/mL (3 mL) Insulin Pen 55 unit SUBCUT DAILY RF: 0 Held metformin 1,000 mg tablet 1,000 mg PO BID RF: 0 Hold Instructions: Resume on 12/13/19. Discontinued ibuprofen 800 mg tablet 800 mg PO BID PRN (Reason: Pain) RF: 0 Discharge Orders: Discharge Order (Routine); Ordered 12/12/19 Ordered By: Kacie Eaton Referrals: Kelly Montalvo, BUSINESS EDUCATION INSTRUCTOR [Primary Care Provider] - 1-3 days Discharge Diet: Advance as tolerated and Diabetic Discharge Activity: Increase activity as tolerated Activity Restrictions/Additional Instructions: Continue to monitor your blood sugars daily and present a blood sugar log to your primary care provider for further insulin adjustment as indicated Return to the ER for any acute illness or concern Continue to encourage hydration with water Started on atorvastatin, cholesterol medication due to elevated cholesterol levels Discharge Attestations Time Spent in Discharge Care*: greater than 30 min Quality Metrics Clinical Quality Measures During this hospital stay, did patient experience: None Coding Level of Care Code Acute As400 Administrator for Philly Fwd Diagnoses Chest pain R07.9 Diabetes E11.9 COPD (chronic obstructive pulmonary disease) J44.9 Essential hypertension I10
[2019-12-12 09:01] LABS: Anion Gap 21.1 (5-19); Blood Urea Nitrogen 20 mg/dL (6-20); Calcium 9.1 mg/dL (8.5-10.5); Carbon Dioxide 20 mmol/L (22-29); Chloride 95 mmol/L (98-107); Glomerular Filtration Rate 124.3 mL/min (90-130); Glucose 298 mg/dL (65-115); Osmolality Calculated 282 mOsm/kg (285-295); Potassium 4.1 mmol/L (3.5-5.1); Sodium 132 mmol/L (136-145)
[2019-12-12] MEDS: atorvastatin 40 mg Tablet PO (09:26)
[2019-12-12 09:31] LABS: Ketone (Acetest) Serum Negative (Negative)
--- NOTE | 2019-12-12 09:48 | PC.SOCIAL ---
[employer] [facility] ride arranged. Trip ID: [id number]. Will arrive by 1247.
[2019-12-12 11:09] LABS: Glucose Point of Care 336 mg/dL (70-110)
[2019-12-12 11:15] VITALS: BP 114/75; PULSE 99; RESP 18; TEMP 36.6; O2SAT 97
[2019-12-12 12:36] VITALS: BP 114/75; PULSE 99; RESP 18; TEMP 36.6; O2SAT 97
--- NOTE | 2019-12-12 13:41 | PC.SOCIAL ---
Last Followed up on transport with [employer]. Was told that ready transport would be here within 15minutes.
== END 2019-12-12 14:44 | disposition home or self-care (01) ==
LOC: ER 09:04 → MEDSURG 13:15
PROVIDERS: Admitting Provider Family Medicine; Emergency Provider Family Medicine; Family Provider Nurse Practitioner Family; PCP Nurse Practitioner Family; Visit Provider Family Medicine
DX: R07.9 Chest pain, unspecified (principal); E11.9 Type 2 diabetes mellitus without complications; J44.9 Chronic obstructive pulmonary disease, unspecified; I10 Essential (primary) hypertension; Z79.82 Long term (current) use of aspirin; Z79.4 Long term (current) use of insulin; Z82.49 Family history of ischemic heart disease and other diseases of the circulatory system; Z83.3 Family history of diabetes mellitus; F17.210 Nicotine dependence, cigarettes, uncomplicated
CPT/HCPCS: 12345; 36415; 36416; 71045; 74177; 80048; 80053; 80061; 81001; 82009; 82962; 83036; 83721; 84484; 85025; 87086; 93005; 93017; 94640; 96360; 96361; 96372; 96374; 96375; 99283; 99285; G0378; J1815; J2405; J2930; J3490; J3535; J7030; Q0162; Q9967

== ENCOUNTER → 2019-12-18 10:53 | Outpatient (BNVA) | payer MEDICARE, MEDICAID, SELFPAY | PROVIDERS: Family Provider Nurse Practitioner Family; PCP Nurse Practitioner Family; Visit Provider Nurse Practitioner Family | DX: D72.829 Elevated white blood cell count, unspecified (principal); K63.9 Disease of intestine, unspecified; R39.11 Hesitancy of micturition; R07.9 Chest pain, unspecified; I10 Essential (primary) hypertension; J44.9 Chronic obstructive pulmonary disease, unspecified; E11.9 Type 2 diabetes mellitus without complications | CPT/HCPCS: 85025 ==

== ENCOUNTER → 2020-01-15 10:56 | Outpatient (BNVA) | payer MEDICARE, MEDICAID, SELFPAY | PROVIDERS: Family Provider Nurse Practitioner Family; PCP Nurse Practitioner Family; Visit Provider Nurse Practitioner Family | DX: E11.9 Type 2 diabetes mellitus without complications (principal); D72.829 Elevated white blood cell count, unspecified | CPT/HCPCS: 83036; 85025 ==

== ENCOUNTER 2020-03-15 07:50 | Day surgery (SDC) | payer MEDICARE, MEDICAID, SELFPAY ==
[2020-03-12 10:21] VITALS: BMI 26.4
[2020-03-12 14:03] VITALS: BMI 26.4
[2020-03-15 08:20] VITALS: BP 167/107; PULSE 106; RESP 18; TEMP 35.9; O2SAT 98
--- NOTE | 2020-03-15 08:42 | P.HP_ITS ---
Same Day Surgery H&P Indication for Procedure/HPI DATE OF PROCEDURE: March 15, 2020 CHIEF COMPLAINT/INDICATIONFOR SURGICAL PROCEDURE: Hematochezia, history of polyps and severe heartburn PREOP DIAGNOSIS: As above PLANNED PROCEDRUE: Operation Date: 03/15/20 10:30 Proposed Procedures p EGD 34573 R12(Not Applicable) - Ronny Joshua MD s Colonoscopy 54110 K92.1(Not Applicable) - Ronny Joshua MD Medications/Allergies* Home Medications Medication Instructions Recorded Confirmed Type fenofibrate 54 mg tablet 54 mg PO DAILY 11/12/19 03/15/20 History lisinopril 10 mg tablet 10 mg PO DAILY 11/12/19 03/15/20 History nitroglycerin 0.4 mg sublingual 0.4 mg SUBLINGUAL Q5M PRN tab 11/12/19 03/15/20 History tablet omeprazole 40 mg capsule,delayed 40 mg PO DAILY 11/12/19 03/15/20 History release propranolol 10 mg tablet 10 mg PO BID 11/12/19 03/15/20 History trazodone 100 mg tablet 100 mg PO BEDTIME 11/12/19 03/15/20 History Tresiba FlexTouch U-200 70 unit SUBCUT DAILY 12/11/19 03/15/20 History aspirin 81 mg PO DAILY 12/11/19 03/15/20 History cholecalciferol (vitamin D3) 50,000 unit PO Q7D 03/12/20 03/15/20 History Allergies/Adverse Reactions Allergy/AdvReac Type Severity Reaction Status Date / Time capsaicin Allergy itching Verified 03/15/20 08:24 and rash codeine Allergy unknown Verified 03/15/20 08:24 gabapentin Allergy seizures Verified 03/15/20 08:24 menthol Allergy unknown Verified 03/15/20 08:24 Pertinent History/Comorbid Conditions* Medical History (Updated 03/08/20 @ 10:58 by BABITA Pathak) Anxiety and depression COPD (chronic obstructive pulmonary disease) Without acute exacerbation Diabetes Poorly controlled, insulin-dependent Follow-up closely with your primary care provider and present blood sugar log at that time Essential hypertension Continue on lisinopril 10 mg daily GERD (gastroesophageal reflux disease) H/O adenomatous polyp of colon Surgical History (Updated 12/05/19 @ 11:40 by BABITA Pathak) S/P right rotator cuff repair Family History (Updated 12/11/19 @ 12:56 by Kacie Eaton DO) Diabetes Mother CAD (coronary artery disease) Father Mother Social History Smoking and tobacco status: current every day smoker cigarettes and cigars Quit status (tobacco): not considering quitting Second hand smoke exposure: Yes Smoking risk assessment/counseling performed?: Yes Alcohol intake: current Alcohol intake frequency: few times a week Desire information about alcohol rehabilitation?: No Counseling given: No Desire information about substance/drug rehabilitation?: No Counseling given: No Pertinent Exam Findings alert, oriented x 3, clear to auscultation bilaterally, regular rate & rhythm, operative site marked and procedure specific exam findings Recommendations Surgery/Procedure today Coding Level of Care Code Acute Power Generation Equipment Repairer for Philly Ramirez
[2020-03-15 08:43] LABS: Glucose Point of Care 403 mg/dL (70-110)
--- NOTE | 2020-03-15 08:47 | ANES.PREANE2 ---
Pre-Anesthetic Assessment Pre-Anesthetic Assessment: Height/Weight: Height 1.8 m Weight 86.183 kg Temp Pulse Resp BP Pulse Ox 96.7 F L 106 H 18 167/107 98 03/15/20 08:20 03/15/20 08:20 03/15/20 08:20 03/15/20 08:20 03/15/20 08:20 Preop Diagnosis: As above Proposed Procedure: Operation Date: 03/15/20 10:30 Proposed Procedures p EGD 12077 R12(Not Applicable) - Ronny Joshua MD s Colonoscopy 00081 K92.1(Not Applicable) - Ronny Joshua MD Familial anesthetic complications: None Was Beta Liz taken within 24 hours: Yes (Patient did not takemetopropol so will give IV metoprolol, no insulin for 2 days BG 402 will give 10 of inuline) Last intake: Intake Last Liquid Date 03/14/20 Last Liquid Time 22:00 Last Solid Date 03/14/20 Last Solid Time 22:00 Social: Social History: Tobacco and No alcohol Exam: Pre-Anes Outpt Exam: alert, oriented x 3, clear to auscultation bilaterally and regular rate & rhythm Airway: Cervical ROM: WNL MP: 3 Dentition: Chipped Additional comments: poor dentition Pulmonary: Pulmonary: Asthma and COPD CV/HEM: CV/HEM: HTN and IN : : None reported Hepatic: Comments: mildly enlarged liver GI: GI: GERD Metabolic: Metabolic: DM Musc/skel: Musc/skel: None reported Neuropsych: Neuropsych: None reported Anesthetic Plan: ASA status: 3 Anesthesia: MAC Risk of > 500 ml blood loss (7ml/kg in children): No PFSH Anesthesia PFSH: Medical History (Updated 03/08/20 @ 10:58 by BABITA Pathak) Anxiety and depression COPD (chronic obstructive pulmonary disease) Without acute exacerbation Diabetes Poorly controlled, insulin-dependent Follow-up closely with your primary care provider and present blood sugar log at that time Essential hypertension Continue on lisinopril 10 mg daily GERD (gastroesophageal reflux disease) H/O adenomatous polyp of colon Surgical History S/P right rotator cuff repair Family History Father CAD (coronary artery disease) Mother CAD (coronary artery disease) Diabetes Social History Smoking and tobacco status: current every day smoker cigarettes and cigars Quit status (tobacco): not considering quitting Second hand smoke exposure: Yes Smoking risk assessment/counseling performed?: Yes Alcohol intake: current Alcohol intake frequency: few times a week Desire information about alcohol rehabilitation?: No Counseling given: No Desire information about substance/drug rehabilitation?: No Counseling given: No Data Anesthesia Other Labs: Laboratory Results - last 48 hr 03/15/20 08:39 POC Glucose 403 Cardiac Studies: No Data to Display
[2020-03-15] MEDS: sodium chloride 0.9% 1,000 ML 30 ML IV (08:51)
[2020-03-15] MEDS: insulin regular-human 100 units/1 mL 10 UNIT IVP (08:55)
[2020-03-15] MEDS: metoprolol tartrate 1 mg/1 mL SDV 5 mL 5 MG IV (08:56)
[2020-03-15 09:14] LABS: Glucose Point of Care 330 mg/dL (70-110)
[2020-03-15 09:38] VITALS: BP 103/75; PULSE 91; RESP 16; TEMP 36.6; O2SAT 94
[2020-03-15 09:47] VITALS: BP 104/76; PULSE 90; RESP 18; O2SAT 98
[2020-03-15 10:06] LABS: Glucose Point of Care 226 mg/dL (70-110)
== END 2020-03-15 10:22 | disposition home or self-care (01) ==
PROVIDERS: PCP Nurse Practitioner Family; Visit Provider Internal Medicine
PROC: 0DJ08ZZ Inspection of Upper Intestinal Tract, Via Natural or Artificial Opening Endoscopic (ICD-10-PCS; CPT 43235; principal; 2020-03-15 10:25)
PROC: 0DJD8ZZ Inspection of Lower Intestinal Tract, Via Natural or Artificial Opening Endoscopic (ICD-10-PCS; CPT 45378; 2020-03-15 10:25)
DX: K92.1 Melena (principal); K31.89 Other diseases of stomach and duodenum; Z86.010 Personal history of colon polyps; R12 Heartburn; Z79.82 Long term (current) use of aspirin; J44.9 Chronic obstructive pulmonary disease, unspecified; I10 Essential (primary) hypertension; K21.9 Gastro-esophageal reflux disease without esophagitis; Z82.49 Family history of ischemic heart disease and other diseases of the circulatory system; Z83.3 Family history of diabetes mellitus; I25.2 Old myocardial infarction
CPT/HCPCS: 12345; 36416; 43235; 45378; 82962; 96374; 96375; J1815; J2001; J2704; J3490; J7030

== ENCOUNTER → 2020-05-10 11:01 | Outpatient (BNVA) | payer MEDICARE, MEDICAID, SELFPAY | PROVIDERS: PCP Nurse Practitioner Family; Visit Provider Nurse Practitioner Family | DX: J44.1 Chronic obstructive pulmonary disease with (acute) exacerbation (principal); F17.200 Nicotine dependence, unspecified, uncomplicated; Z11.59 Encounter for screening for other viral diseases | CPT/HCPCS: 87635 ==

== ENCOUNTER → 2020-06-15 10:12 | Outpatient (BNVA) | payer MEDICARE, MEDICAID, SELFPAY | PROVIDERS: PCP Nurse Practitioner Family; Visit Provider Nurse Practitioner Family | DX: E11.9 Type 2 diabetes mellitus without complications (principal); E55.9 Vitamin D deficiency, unspecified; I10 Essential (primary) hypertension; E78.2 Mixed hyperlipidemia; Z79.4 Long term (current) use of insulin | CPT/HCPCS: 80053; 80061; 81003; 82306; 83036; 84443; 85025 ==

== ENCOUNTER → 2020-07-21 09:39 | Outpatient (BNVA) | payer MEDICAID, MEDICARE, SELFPAY | PROVIDERS: PCP Nurse Practitioner Family; Visit Provider Psychiatry & Neurology Psychiatry | DX: F32.9 Major depressive disorder, single episode, unspecified (principal); Z72.820 Sleep deprivation | CPT/HCPCS: 90792 ==

== ENCOUNTER → 2020-08-19 13:43 | Outpatient (BNVA) | payer MEDICARE, MEDICAID, SELFPAY | PROVIDERS: PCP Nurse Practitioner Family; Visit Provider Psychiatry & Neurology Psychiatry | DX: F41.1 Generalized anxiety disorder (principal); F32.9 Major depressive disorder, single episode, unspecified | CPT/HCPCS: 99214 ==

== ENCOUNTER → 2020-10-05 08:16 | Outpatient (BNVA) | payer MEDICARE, MEDICAID, SELFPAY | PROVIDERS: PCP Nurse Practitioner Family; Visit Provider Psychiatry & Neurology Psychiatry | DX: F41.1 Generalized anxiety disorder (principal); F32.9 Major depressive disorder, single episode, unspecified; F43.10 Post-traumatic stress disorder, unspecified; Z72.820 Sleep deprivation | CPT/HCPCS: 99214 ==

== ENCOUNTER → 2020-11-25 10:16 | Outpatient (BNVA) | payer MEDICARE, MEDICAID, SELFPAY | PROVIDERS: PCP Nurse Practitioner Family; Visit Provider Psychiatry & Neurology Psychiatry | DX: F32.9 Major depressive disorder, single episode, unspecified (principal); F41.1 Generalized anxiety disorder; F43.10 Post-traumatic stress disorder, unspecified; Z72.820 Sleep deprivation | CPT/HCPCS: 99214 ==

== ENCOUNTER → 2021-03-09 10:39 | Outpatient (BNVA) | payer MEDICARE, MEDICAID, SELFPAY | PROVIDERS: PCP Nurse Practitioner Family; Visit Provider Nurse Practitioner Family | DX: H93.13 Tinnitus, bilateral (principal); H60.90 Unspecified otitis externa, unspecified ear | CPT/HCPCS: 85025 ==

== ENCOUNTER → 2021-03-21 10:25 | Outpatient (BNVA) | payer MEDICARE, MEDICAID, SELFPAY | PROVIDERS: PCP Nurse Practitioner Family; Visit Provider Nurse Practitioner Family | DX: I10 Essential (primary) hypertension (principal); R53.83 Other fatigue; E11.9 Type 2 diabetes mellitus without complications; Z79.4 Long term (current) use of insulin; E78.2 Mixed hyperlipidemia; E55.9 Vitamin D deficiency, unspecified | CPT/HCPCS: 80053; 80061; 82306; 83036; 84402; 84403; 84439; 84443; 85025 ==

== ENCOUNTER 2021-05-23 07:21 | Outpatient (CLI) | payer MEDICARE, MEDICAID, SELFPAY ==
--- NOTE | 2021-05-23 07:34 | XR_ITS ---
WS: [id number] XR shoulder RT min 2V* [id number] REASON FOR EXAM: S49.90XA - Unspecified injury of shoulder and upper arm, ... FINDINGS: Status post right rotator cuff tendon repair. Degenerative changes in the right humeral head compatible with rotator cuff tendinopathy. No acute bony or joint abnormality. XR/XR shoulder RT min 2V* [id number] IMPRESSION: Postoperative right shoulder with no acute abnormality.
== END 2021-05-23 07:22 | disposition home or self-care (01) ==
LOC: RAD 07:30
PROVIDERS: PCP Nurse Practitioner Family; Visit Provider Nurse Practitioner Family
DX: S49.91XA Unspecified injury of right shoulder and upper arm, initial encounter (principal); X58.XXXA Exposure to other specified factors, initial encounter
CPT/HCPCS: 73030

== ENCOUNTER → 2021-05-30 13:29 | Outpatient (BNVA) | payer MEDICARE, MEDICAID, SELFPAY | PROVIDERS: PCP Nurse Practitioner Family; Referring Provider Nurse Practitioner; Visit Provider Specialist | DX: G56.21 Lesion of ulnar nerve, right upper limb (principal); F17.210 Nicotine dependence, cigarettes, uncomplicated | CPT/HCPCS: 95908 ==